=== PATIENT | female | born 1960 | race Two or more races ===

== ENCOUNTER 2024-01-06 17:05 | Emergency (ER) | payer OTHER ==
[~2024-01-06] VITALS: Ht 160 cm; Wt 54.5 kg
[2024-01-06 17:24] VITALS: BP 130/91; PULSE 74; RESP 16; O2SAT 97
[2024-01-06] MEDS: ONDANSETRON ODT 4 MG TAB PO ONE (20:31)
[2024-01-06] MEDS: ACETAMINOPHEN/CODEINE#3 (300/30mg) TAB PO ONE (20:31)
[2024-01-06] MEDS ORDERED: ACE3T PO (21:15)
== END 2024-01-06 21:43 | disposition home or self-care (01) ==
LOC: ER 17:05
DX: S39.012A Strain of muscle, fascia and tendon of lower back, initial encounter (principal); S70.02XA Contusion of left hip, initial encounter; S90.32XA Contusion of left foot, initial encounter; S09.8XXA Other specified injuries of head, initial encounter; W18.09XA Striking against other object with subsequent fall, initial encounter; Y93.89 Activity, other specified; Y92.89 Other specified places as the place of occurrence of the external cause; Y99.8 Other external cause status
CPT/HCPCS: 70450; 72100; 73502; 73630; 99284; Q0162